=== PATIENT | male | born 1980 | race Two or more races ===

== ENCOUNTER 2018-04-08 10:12 | Emergency (ER) | payer OTHER ==
[~2018-04-08] VITALS: Ht 193 cm; Wt 108.9 kg
== END 2018-04-08 12:00 | disposition home or self-care (01) ==
LOC: ED 10:12
PROC: 0HQ0XZZ Repair Scalp Skin, External Approach (ICD-10-PCS; principal; 2018-04-08)
DX: S01.01XA Laceration without foreign body of scalp, initial encounter (principal); Z23 Encounter for immunization; F17.200 Nicotine dependence, unspecified, uncomplicated; W22.8XXA Striking against or struck by other objects, initial encounter
CPT/HCPCS: 12002; 90471; 90715; 99282